=== PATIENT | male | born 1945 | race Caucasian/White ===

== ENCOUNTER 2016-10-27 10:00 | Inpatient (IN) | payer MEDICARE ==
[~2016-10-27] VITALS: Ht 172.7 cm; Wt 110.0 kg
--- NOTE | ~2016-10-27 | OR ---
[facility] 71 Y [address] ROOM: [place] [address] LOCATION: [facility] ADMIT DATE: 11/03/2016 OR/Procedure Report DISCHARGE DATE: FAMILY PHYSICIAN: Schuyler Belcher MD ATTENDING PHYSICIAN: DESTINY AGUILAR SURGEON: Destiny Aguilar MD INTERACTIVE PRODUCER: 1. Jack Rush PA-C. 2. Jamari Tim CST/CHEMA. DATE OF PROCEDURE: 11/03/2016 PRE-OP DIAGNOSIS: Primary osteoarthritis with severe external rotation contracture, right hip. POST-OP DIAGNOSIS: Primary osteoarthritis with severe external rotation contracture, right hip. OPERATION: Right total hip arthroplasty. ANESTHESIA: Spinal anesthesia plus subcutaneous and periarticular local anesthesia (ropivacaine with epinephrine and Toradol). ESTIMATED BLOOD LOSS: Approximately 250 mL. DRAIN: None. SPECIMEN: None. COMPLICATIONS: None. IMPLANTS: [place] Trident Tritanium size 60 mm hemispherical uncemented acetabular shell with one dome hole cover and no screws. [place] X3 neutral acetabular polyethylene liner with 40 mm inner diameter. DePuy [place] size 8 standard offset, uncemented femoral component. A 40 mm Biolox femoral head with +0 mm neck length. INDICATION FOR SURGERY: The patient is a 71-year-old male who presents with advanced right hip primary osteoarthritis with severe external rotation contracture and associated severely compromised activities of daily living. The patient has decided to proceed with hip replacement after having been thoroughly counseled regarding the associated risks, benefits, and limitations. We have specifically reviewed the risks and implications of infection, deep venous thrombosis, pulmonary embolism, mortality, neurovascular complications, blood transfusion (and associated potential for disease transmission or transfusion reaction), stiffness, instability, leg PATIENT'S NAME[facility] AGE: 71 Y [address] ROOM: [place] [address] LOCATION: [facility] ADMIT DATE: 11/03/2016 OR/Procedure Report DISCHARGE DATE: FAMILY PHYSICIAN: Schuyler Belcher MD ATTENDING PHYSICIAN: DESTINY AGUILAR length discrepancy, mechanical deterioration of the components (due to wear and to loosening), and the potential need for revision. DESCRIPTION OF PROCEDURE: The patient was positioned in a lateral decubitus position with the right side up after administration of anesthesia and prophylactic antibiotics. An axillary roll was placed and the non-operative leg was well padded. The pelvis was locked perpendicularly to the floor on a pegboard. The right hip and entire operative extremity were prepped and draped with vigilant sterile technique. The patient's name as well as the intended operative side and procedure were confirmed with a verbal time-out involving myself, the circulating nurse, the scrub nurse, and the anesthesiologist. The right hip was approached through a standard posterolateral incision. The fascia nj and the gluteus rome fascia were sharply divided in line with the overlying skin incision. The sciatic nerve was identified and was vigilantly protected throughout the entire case. The short external rotators and posterior capsule were divided from their respective femoral insertions and tagged with four #1 Ethibond sutures for later repair. The hip was posteriorly dislocated with combined flexion, adduction, and internal rotation. The femoral neck osteotomy was performed with an oscillating saw. Inspection of the femoral head demonstrated full-thickness loss of articular cartilage throughout its weightbearing surface. There was no femoral head collapse. There was markedly decreased femoral head-neck offset. There was a large osteophyte at the periphery of the femoral head. There were several small subchondral cysts of the femoral head. Photographic documentation of the appearance of the femoral head was obtained. Circumferential acetabular exposure was obtained. Examination of acetabulum demonstrated a large inferior osteophyte and a moderately large medial acetabular osteophyte. There were no loose bodies. There was a large effusion consisting of benign-appearing translucent synovial fluid. There was no dysplasia. There was full-thickness loss of articular cartilage throughout the acetabular dome. There were several small subchondral cysts anterosuperiorly. Remnants of the acetabular labrum were sharply thoroughly excised. The acetabulum was sequentially progressively reamed up to 59 mm with hemispherical power reamers. The final acetabular shell was impacted into position in 20 degrees of anteversion and 45 degrees of inclination. An excellent Press-fit was obtained. No supplemental dome screw fixation was necessary. A neutral trial liner was inserted. Attention was next focused upon femoral preparation. The femoral canal PATIENT'S NAME: HALINA HERMOSILLO [facility] AGE: 71 Y [address] ROOM: [id number] [place], [place] [address] LOCATION: [facility] ADMIT DATE: 11/03/2016 OR/Procedure Report DISCHARGE DATE: FAMILY PHYSICIAN: Schuyler Belcher MD ATTENDING PHYSICIAN: DESTINY AGUILAR initiator was utilized. The femoral canal was reamed by hand to a size 6 and subsequently on power to a size 8 with tapered conical reamers. The size 8 reamer tightly engaged the endosteal cortex of the proximal femur. The femoral canal was subsequently sequentially progressively broached up to a size 8. The size 8 broach obtained excellent axial and rotational stability. Trial reductions with the above specified construct yielded acceptable stability and acceptable reproduction of leg length and offset. All trial components were removed. The final acetabular liner was inserted with excellent circumferential visualization of its locking mechanism to assure adequate deployment. The final femoral component was impacted into position. The femoral component achieved excellent axial and rotational stability. The trunnion of the femoral component was vigilantly protected prior to placement of the femoral head. The trunnion of the femoral component was thoroughly cleaned and dried prior to placement of the femoral head. The incision was thoroughly irrigated with bacteriostatic pulsatile saline lavage multiple times throughout the case. The entire joint space was thoroughly inspected and thoroughly irrigated to assure that there was no residual debris of any sort. A final reduction was then performed. After final reduction, the hip could be firmly externally rotated in full extension and zero degrees of abduction without anterior subluxation. In neutral rotation and zero degrees of abduction, the hip could be firmly flexed to 120 degrees without instability. At 90 degrees of flexion and zero degrees abduction, the hip could be internally rotated to 65 degrees before there was any hint of posterior subluxation. The posterior capsule and short external rotators were repaired through two drill holes in the posterior aspect of the greater trochanter. The fascia nj and gluteus rome fascia were closed with multiple simple and [id number] interrupted # 1 Ethibond and #1 Vicryl sutures. Subcutaneous tissues were thoroughly re-irrigated with bacteriostatic pulsatile saline lavage. Subcutaneous tissues were re-approximated with simple buried interrupted #0 Vicryl sutures. The skin was closed with superficial buried interrupted 2-0 Vicryl sutures followed by a running subcuticular 3-0 Monocryl suture, followed by Octylseal, followed by Steri- Strips with benzoin, followed by an occlusive Mepilex dressing. There were no intra-operative complications. It should be noted that the physician's industrial hire sales assistant played an active, integral role throughout this entire operation. By providing expert retraction, she PATIENT'S NAME: HALINA HERMOSILLO [facility] AGE: 71 Y [address] ROOM: [place] [address] LOCATION: [facility] ADMIT DATE: 11/03/2016 OR/Procedure Report DISCHARGE DATE: FAMILY PHYSICIAN: Schuyler Belcher MD ATTENDING PHYSICIAN: DESTINY AGUILAR greatly facilitated and expedited safe and effective exposure of the proximal femur and acetabulum for preparation and implantation of the components. She was also actively involved in the patient's positioning, prepping and draping, as well as wound closure. MD VIPIN MCGOVERN/lizbet /[id number] d: 11/03/162009 t: 11/11/16 1042, OPERATIVE SUMMARY
--- NOTE | ~2016-10-27 | DS ---
PATIENT'S NAME: HALINA HERMOSILLO [facility] AGE: 71 Y [address] ROOM: [place] [address] LOCATION: [facility] ADMIT DATE: 11/03/2016 Discharge Summary DISCHARGE DATE: 11/05/2016 FAMILY PHYSICIAN: Schuyler Belcher MD ATTENDING PHYSICIAN: Marcelo Rodriguez PRIMARY DIAGNOSIS: Osteoarthritis, right hip. SECONDARY DIAGNOSIS: 1. Congestive heart failure. 2. Tobacco abuse. 3. Moderate chronic obstructive pulmonary disease. 4. Coronary artery disease. 5. Hyperlipidemia. 6. Obesity, BMI of 38. PROCEDURE PERFORMED: Right total hip arthroplasty. HISTORY: The patient is a 71-year-old male, who presents with advanced right hip degenerative joint disease and associated severely compromised activities of daily living. The patient has decided to proceed with total right hip arthroplasty after having been thoroughly counseled regarding the risks, benefits, limitations and alternatives. Please refer to the outpatient clinic notes and admission history and physical for this patient. HOSPITAL COURSE: The patient underwent a total right hip arthroplasty on 11/03/2016 without complications. Spinal anesthesia plus subcutaneous and periarticular local anesthesia was utilized. The patient received 24 hours of perioperative prophylactic antibiotics and remained hemodynamically stable, neurovascularly intact throughout the entire hospital course. The postoperative prophylactic deep venous thrombosis prophylaxis consisted Xarelto 10 mg, early mobilization and pneumatic compression devices. Daily physical therapy for gait training, transfer training, and reinforcement of hip dislocation precautions were received. The patient progressed well in physical therapy. On the date of discharge, 11/05/2016, the incision at the hip was healing well and showed no signs of infection. DISPOSITION: Home. DISCHARGE ACTIVITY: The patient is to bear weight as tolerated with strict hip dislocation precautions as instructed. There are to be no dressing changes. Dr. Rodriguez is to be notified immediately if there is any increased pain, fevers, chills, erythema or drainage. DISCHARGE MEDICATIONS: Include: PATIENT'S NAME: HLAINA HERMOSILLO [facility] AGE: 71 Y [address] ROOM: [place] [address] LOCATION: [facility] ADMIT DATE: 11/03/2016 Discharge Summary DISCHARGE DATE: 11/05/2016 FAMILY PHYSICIAN: Schuyler Belcher MD ATTENDING PHYSICIAN: Rodriguez,Earnest 1. Xarelto 10 mg, take one tablet p.o. daily for DVT prevention. 2. Diazepam 5 mg, take one-half to one tablet p.o. every 6 hours as needed for muscle spasms. 3. Dilaudid 2 mg, take 1 to 2 tablets p.o. every 4 hours as needed for pain. FOLLOWUP: Followup appointment is to be with Dr. Rodriguez on Thursday, November 10, 2016 for initial postop evaluation. SHANNAN QUAN FOR MD CHERIE MCGOVERN/kimberlyl /[id number] d: 11/12/16 1259 t: 11/17/16 1413, DISCHARGE SUMMARY
[2016-10-28] MEDS ORDERED: ASPIRIN EC81 MG PO (08:19)
[2016-10-28] MEDS ORDERED: LASIX40 MG PO ×2 (08:20→08:21)
[2016-10-28] MEDS ORDERED: PRINIVIL (ZESTR20 MG PO (08:21)
[2016-10-28] MEDS ORDERED: LOPRESSOR50 MG PO (08:21)
[2016-10-28] MEDS ORDERED: ZOCOR40 MG PO (08:22)
[2016-10-28] MEDS ORDERED: K-TAB 10MEQ10 MEQ PO (08:22)
[2016-10-28] MEDS ORDERED: ZAROXOLYN2.5 MG PO (08:22)
[2016-10-28] MEDS ORDERED: ALEVE220 M1 PO (08:23)
[2016-10-30] MEDS ORDERED: LASIX80 MG PO ×2 (15:01→15:05)
[2016-10-30] MEDS ORDERED: LASIX40 MG PO (15:09)
[2016-11-03 10:07] LABS: BILIRUBIN URINE NEGATIVE (NEGATIVE); BLOOD URINE NEGATIVE /UL (NEGATIVE); GLUCOSE URINE NEGATIVE (NEGATIVE); KETONE URINE NEGATIVE (NEGATIVE); LEUKOCYTES URINE 25 /UL (NEGATIVE); NITRITE URINE NEGATIVE (NEGATIVE); PROTEIN URINE NEGATIVE (NEGATIVE); SPEC GRAVITY URINE 1.015 (1.003-1.035); UROBILINOGEN URINE NORMAL (NORMAL)
[2016-11-03 10:10] LABS: COLOR URINE YELLOW (YELLOW); TURBIDITY URINE 1+ (CLEAR)
[2016-11-03 10:20] LABS: WBC URINE 0-2 #/HPF (NEGATIVE)
[2016-11-03 10:21] LABS: BACTERIA URINE NEGATIVE (NEGATIVE); EPITHELIAL URINE 0-2 #/HPF (NEGATIVE); RBC URINE RARE #/HPF (NEGATIVE)
[2016-11-04 05:51] LABS: HEMATOCRIT 34.6 % (37.0-53.0); HEMOGLOBIN 11.7 g/dL (11.0-16.0)
[2016-11-05] MEDS ORDERED: TYLENOL EXTRA500 MG PO (09:45)
[2016-11-05] MEDS ORDERED: COLACE100 MG PO (09:46)
[2016-11-05] MEDS ORDERED: MIRALAX17 GM PO (09:47)
[2016-11-05] MEDS ORDERED: XARELTO10 MG PO (09:48)
[2016-11-05] MEDS ORDERED: VALIUM5 MG PO (09:49)
[2016-11-05] MEDS ORDERED: DILAUDID 2MG(HYD2 MG PO (09:53)
== END 2016-11-05 18:00 | disposition disaster alternative care site (69) | DRG 470 ==
LOC: G3N 11-03 08:36
PROVIDERS: ADMIT Orthopaedic Surgery
PROC: 0SR904A Replacement of Right Hip Joint with Ceramic on Polyethylene Synthetic Substitute, Uncemented, Open Approach (ICD-10-PCS; principal; 2016-11-03)
DX: M16.11 Unilateral primary osteoarthritis, right hip (principal); I50.20 Unspecified systolic (congestive) heart failure; J44.9 Chronic obstructive pulmonary disease, unspecified; F17.220 Nicotine dependence, chewing tobacco, uncomplicated; I25.10 Atherosclerotic heart disease of native coronary artery without angina pectoris; I10 Essential (primary) hypertension; E78.5 Hyperlipidemia, unspecified; E66.9 Obesity, unspecified; Z68.36 Body mass index [BMI] 36.0-36.9, adult; Z79.82 Long term (current) use of aspirin; Z23 Encounter for immunization; M24.551 Contracture, right hip
CPT/HCPCS: C1776; G0008; G0009; J0690; J1100; J1885; J2001; J2250; J2405; J2795; J7030; J7120

== ENCOUNTER 2017-02-23 10:00 | Inpatient (IN) | payer MEDICARE ==
[~2017-02-23] VITALS: Ht 172.7 cm; Wt 117.9 kg
--- NOTE | ~2017-02-23 | DS ---
PATIENT'S NAME: HALINA HERMOSILLO [facility] AGE: 71 Y [address] ROOM: [place] [address] LOCATION: [facility] ADMIT DATE: 03/02/2017 Discharge Summary DISCHARGE DATE: 03/04/2017 FAMILY PHYSICIAN: Schuyler Belcher MD ATTENDING PHYSICIAN: Marcelo Aguilar PRIMARY DIAGNOSIS: Osteoarthritis, left hip. SECONDARY DIAGNOSES: 1. Coronary artery disease. 2. Congestive heart failure. 3. Hypertension. 4. Chronic obstructive pulmonary disease. 5. Tobacco abuse. 6. Dyslipidemia. PROCEDURE PERFORMED: Left total hip arthroplasty. HISTORY: The patient is a 71-year-old male who presents with advanced left hip degenerative joint disease and associated severely compromised activities of daily living. The patient has decided to proceed with total left hip arthroplasty after having been thoroughly counseled regarding the risks, benefits, limitations and alternatives. Please refer to the outpatient clinic notes and admission history and physical for this patient. HOSPITAL COURSE: The patient underwent a total left hip arthroplasty on March 02, 2017 without complications. Spinal anesthesia plus subcutaneous and periarticular local anesthesia (ropivacaine with epinephrine) was utilized. The patient received 24 hours of perioperative prophylactic antibiotics and remained hemodynamically stable, neurovascularly intact throughout the entire hospital course. The postoperative prophylactic deep venous thrombosis prophylaxis consisted of Xarelto, early mobilization and pneumatic compression devices. Daily physical therapy for gait training, transfer training, and reinforcement of hip dislocation precautions were received. The patient progressed well in physical therapy. On the date of discharge, 03/04/2017, the incision at the hip was healing well and showed no signs of infection. DISPOSITION: Home. DISCHARGE ACTIVITY: The patient is to bear weight as tolerated with strict hip dislocation precautions as instructed. There are to be no dressing changes. Dr. Aguilar is to be notified immediately if there is any increased pain, fevers, chills, erythema or drainage. DISCHARGE MEDICATIONS: New medications: PATIENT'S NAME: HALINA HERMOSILLO [facility] AGE: 71 Y [address] ROOM: [place] [address] LOCATION: [facility] ADMIT DATE: 03/02/2017 Discharge Summary DISCHARGE DATE: 03/04/2017 FAMILY PHYSICIAN: Schuyler Belcher MD ATTENDING PHYSICIAN: Marcelo Aguilar 1. Acetaminophen 1000 mg orally q.6 hours as needed for pain. 2. Colace 100 mg p.o. b.i.d. as needed for constipation. 3. MiraLAX powder 17 g orally twice a day as needed for constipation. 4. Xarelto 10 mg orally daily. 5. Diazepam 5 mg, half to one tab every 6 hours as needed for muscle spasms. 6. Dilaudid 2 mg 1 to 2 tabs every 4 hours as needed for pain. 7. Artificial tears one drop ophthalmically every hour as needed for dry eyes. Otherwise, the patient was instructed to continue the pre-admission medications as instructed by the internal medicine doctor. FOLLOWUP: Followup appointment is to be with Dr. Aguilar's office on March 09, 2017 at 1:00 p.m. for his initial postoperative evaluation. CANDIDA AGUILAR PA-C FOR MD MYNOR MCGOVERN/lizbet /[id number] d: 03/08/17 215 t: 03/09/17 1740, DISCHARGE SUMMARY
--- NOTE | ~2017-02-23 | OR ---
PATIENT'S NAME: DENILSON HERMOSILLO [facility] AGE: 71 Y [address] ROOM: [place] [address] LOCATION: [facility] ADMIT DATE: 03/02/2017 OR/Procedure Report DISCHARGE DATE: FAMILY PHYSICIAN: Schuyler Belcher MD ATTENDING PHYSICIAN: DESTINY AGUILAR SURGEON: Destiny Aguilar MD ADMISSIONS SUPERVISOR: 1. Maicol uRsh PA-C. 2. Jamari Tim CST/CHEMA. DATE OF PROCEDURE: 03/02/2017 PRE-OP DIAGNOSIS: Primary osteoarthritis, left hip. POST-OP DIAGNOSIS: Primary osteoarthritis, left hip. OPERATION: Left total hip arthroplasty. ANESTHESIA: Spinal anesthesia plus subcutaneous and periarticular local anesthesia (ropivacaine with epinephrine). ESTIMATED BLOOD LOSS: Approximately 250 mL. DRAIN: None. SPECIMEN: None. COMPLICATIONS: None. IMPLANTS: 1. [place] Trident titanium size 58 mm hemispherical uncemented acetabular shell with 1 dome hole cover and no screws. 2. [place] X3 neutral acetabular polyethylene liner with 40 mm inner diameter. 3. DePuy [place] size 8 standard-offset uncemented femoral component. 4. A 40 mm metallic femoral head with +5 mm neck length. INDICATION FOR SURGERY: Denilson Hermosillo is a 71-year-old male who presents with advanced primary osteoarthritis of the left hip and associated severely compromised activities of daily living. The patient has decided to proceed with hip replacement after having been thoroughly counseled regarding the associated risks, benefits, and limitations. We have specifically reviewed the risks and implications of infection, deep venous thrombosis, pulmonary embolism, mortality, neurovascular complications, blood transfusion (and associated potential for disease transmission or transfusion reaction), stiffness, instability, leg length discrepancy, mechanical deterioration of the components (due to wear and to loosening), and the potential need for PATIENT'S NAME: DENILSON HERMOSILLO [facility] AGE: 71 Y [address] ROOM: [place] [address] LOCATION: [facility] ADMIT DATE: 03/02/2017 OR/Procedure Report DISCHARGE DATE: FAMILY PHYSICIAN: Schuyler Belcher MD ATTENDING PHYSICIAN: DESTINY AGUILAR. DESCRIPTION OF PROCEDURE: The patient was positioned in a lateral decubitus position with the left side up after administration of anesthesia and prophylactic antibiotics. An axillary roll was placed and the non-operative leg was well padded. The pelvis was locked perpendicularly to the floor on a pegboard. The left hip and entire operative extremity were prepped and draped with vigilant sterile technique. The patient's name as well as the intended operative side and procedure were confirmed with a verbal time-out involving myself, the circulating nurse, the scrub nurse, and the anesthesiologist. The left hip was approached through a standard posterolateral incision. The fascia nj and the gluteus rome fascia were sharply divided in line with the overlying skin incision. The sciatic nerve was identified and was vigilantly protected throughout the entire case. The short external rotators and posterior capsule were divided from their respective femoral insertions and tagged with four #1 Ethibond sutures for later repair. The hip was posteriorly dislocated with combined flexion, adduction, and internal rotation. The femoral neck osteotomy was performed with an oscillating saw. Inspection of the femoral head demonstrated full-thickness loss of articular cartilage throughout the anterosuperior quadrant of the femoral head. There was a large osteophyte at the periphery of the femoral head. There was no femoral head collapse. Circumferential acetabular exposure was obtained. Examination of acetabulum demonstrated a moderate effusion consisting of benign-appearing translucent synovial fluid. There were no loose bodies. There was a moderate-sized medial acetabular osteophyte. There were no loose bodies. There was no dysplasia. There was full-thickness loss of articular cartilage throughout the majority of the acetabular dome. Remnants of the acetabular labrum were sharply thoroughly excised. The acetabulum was sequentially progressively reamed up to 57 mm with hemispherical power reamers. The final acetabular shell was impacted into position in 20 degrees of anteversion and 45 degrees of inclination. An excellent press-fit was obtained. No supplemental dome screw fixation was necessary. A neutral trial liner was inserted. Attention was next focused upon femoral preparation. The femoral canal initiator was utilized. The femoral canal was reamed by hand to a size 6 and subsequently on power to a size 8. The size 8 reamer tightly engaged the endosteal cortex of the proximal femur. The femoral canal was subsequently sequentially progressively broached up to a size 8. The size 8 broach PATIENT'S NAME: DENILSON HERMOSILLO [facility] AGE: 71 Y [address] ROOM: [address] [place] [id number] LOCATION: [facility] ADMIT DATE: 03/02/2017 OR/Procedure Report DISCHARGE DATE: FAMILY PHYSICIAN: Schuyler Belcher MD ATTENDING PHYSICIAN: DESTINY AGUILAR obtained excellent axial and rotational stability. Trial reductions with the above specified construct yielded acceptable stability and acceptable reproduction of leg length and offset. All trial components were removed. The final acetabular liner was inserted with excellent circumferential visualization of its locking mechanism to assure adequate deployment. The final femoral component was impacted into position. The femoral component achieved excellent axial and rotational stability. The trunnion of the femoral component was vigilantly protected prior to placement of the femoral head. The trunnion of the femoral component was thoroughly cleaned and dried prior to placement of the femoral head. The incision was thoroughly irrigated with bacteriostatic pulsatile saline lavage multiple times throughout the case. The entire joint space was thoroughly inspected and thoroughly irrigated to assure that there was no residual debris of any sort. A final reduction was then performed. After final reduction, the hip could be firmly externally rotated in full extension and zero degrees of abduction without anterior subluxation. In neutral rotation and zero degrees of abduction, the hip could be firmly flexed to 120 degrees without instability. At 90 degrees of flexion and zero degrees abduction, the hip could be internally rotated to 60 degrees before there was any hint of posterior subluxation. The posterior capsule and short external rotators were repaired through two drill holes in the posterior aspect of the greater trochanter. The fascia nj and gluteus rome fascia were closed with multiple simple and [id number] interrupted # 1 Ethibond and #1 Vicryl sutures. Subcutaneous tissues were thoroughly re-irrigated with bacteriostatic pulsatile saline lavage. Subcutaneous tissues were re-approximated with simple buried interrupted #0 Vicryl sutures. The skin was closed with superficial buried interrupted 2-0 Vicryl sutures followed by a running subcuticular 3-0 Monocryl suture, followed by Octylseal, followed by Steri- Strips with benzoin, followed by an occlusive Mepilex dressing. There were no intra-operative complications. It should be noted that the physician's evaluation assistant played an active, integral role throughout this entire operation. By providing expert retraction, they greatly facilitated and expedited safe and effective exposure of the proximal femur and acetabulum for preparation and implantation of the components. They were also actively involved in the patient's positioning, prepping and draping, as well as wound closure. PATIENT'S NAME: DENILSON HERMOSILLO [facility] AGE: 71 Y [address] ROOM: [address] [address] LOCATION: [facility] ADMIT DATE: 03/02/2017 OR/Procedure Report DISCHARGE DATE: FAMILY PHYSICIAN: Schuyler Belcher MD ATTENDING PHYSICIAN: DESTINY AGUILAR MD SYLVIA MCGOVERNW/modl /[id number] d: 03/02/171921 t: 03/03/17 1033, OPERATIVE SUMMARY
[~2017-02-23 10:00] MED LIST: ALEVE220 M1 PO; ASPIRIN EC81 MG PO; COLACE100 MG PO; DILAUDID 2MG(HYD2 MG PO; K-TAB 10MEQ10 MEQ PO; LASIX40 MG PO; LASIX80 MG PO; LOPRESSOR50 MG PO; MIRALAX17 GM PO; PRINIVIL (ZESTR20 MG PO; TYLENOL EXTRA500 MG PO; VALIUM5 MG PO; XARELTO10 MG PO; ZAROXOLYN2.5 MG PO; ZOCOR40 MG PO
--- NOTE | 2017-03-02 14:20 | NUR ---
Introduced self/role to patient Reports he live in [facility] [place]. Has DME from prior surgery including walker, tall toilet, sock aide, newsperson. Plans to return home with help from sister. No anticipated needs at this time. Will follow.
--- NOTE | 2017-03-02 18:31 | NUR ---
Significant Event: Pt arrived from PACU, VSS, 1900 is his 3rd hourly, Pt has adequate I&O, drank over 1600, inc and st cathed at 1710 for 1450 mls., Pain is minimal, Last Dilaudid & Tylenol at 1641, Spinal was slow to wear off, Performed Pericare & got to recliner around 1715, Follow up: Pain, Next Antb at 1800
--- NOTE | 2017-03-03 04:00 | NUR ---
Patient alert and oriented x3, very pleasant and cooperative, dressing clean dry and intact, ice in place to hip, unsteady with ambulation needs 2 assist with walker and gaitbelt, csm with in normal limits, pain undercontrol with oral dilaudid, has rested some tonight
--- NOTE | 2017-03-03 17:17 | NUR ---
Significant Event: Pt is a/o. Cooperative with cares. Has been up in chair and amb to BR with walker, gaitbelt and 1 assist. Slightly unsteady when up. L) eye sore, has eye drops q hour. Dilaudid last @ 1605. Toradol IV @ 1031. CSM WNL. Ice bag to L) hip. mepilex and tegaderm c/d/i. Pillow between knees. Follow up:
--- NOTE | 2017-03-04 04:20 | NUR ---
Significant Event: A/O X 3. IV SALINE LOCKS INTACT. SAT UP IN RECLINER CHAIR. RETURN TO BED 2345 WITH ONE ASSIST WALKER AND GAITBELT, STIFFNESS. BED EXIT ALARMS ON. BEEN REPOSITIONED TO RT SIDE. COCCYX -JOSE AREA REDDENED. ALOE APPLIED. DRSGS LEFT HIP DRY INTACT. ICE BAG TO SITE. GAIT SLIGHT UNSTEADY WHEN UP. PILLOWS BETWEEN KNEES. LEFT EYE SORENESS BUT IS IMPROVING WITH EYE DROPS. ON ROUTINE SHCEDULED TYLENOL X ST 1000MG 2300/0500. HAD DILAUDID 2MG PO AT 2248 FOR PAIN RATE 2 LEFT HIP. LATER 1 RATING. HAD LARGE BM IN BR AND VOID 275ML AT 2139. Follow up:
[2017-03-04] MEDS ORDERED: TYLENOL EXTRA500 MG PO (14:31)
[2017-03-04] MEDS ORDERED: COLACE100 MG PO (14:33)
[2017-03-04] MEDS ORDERED: MIRALAX17 GM PO (14:34)
[2017-03-04] MEDS ORDERED: XARELTO10 MG PO (14:35)
[2017-03-04] MEDS ORDERED: VALIUM5 MG PO (14:36)
[2017-03-04] MEDS ORDERED: DILAUDID 2MG(HYD2 MG PO (14:37)
[2017-03-04] MEDS ORDERED: ARTIFICIAL TEAR15 M5 OPHTH (14:39)
--- NOTE | 2017-03-04 15:30 | NUR ---
Patient was AOx3. VSS. CSM WNL. Patient had no questions or concerns about discharge instructions. Patient was wheeled out to front lobby for dismissal home with sister.
== END 2017-03-04 15:15 | disposition disaster alternative care site (69) | DRG 470 ==
LOC: G3N 03-02 07:02
PROVIDERS: ADMIT Orthopaedic Surgery
PROC: 0SRB02A Replacement of Left Hip Joint with Metal on Polyethylene Synthetic Substitute, Uncemented, Open Approach (ICD-10-PCS; principal; 2017-03-02)
DX: M16.12 Unilateral primary osteoarthritis, left hip (principal); J96.10 Chronic respiratory failure, unspecified whether with hypoxia or hypercapnia; I50.32 Chronic diastolic (congestive) heart failure; I11.0 Hypertensive heart disease with heart failure; J44.9 Chronic obstructive pulmonary disease, unspecified; E78.5 Hyperlipidemia, unspecified; I25.10 Atherosclerotic heart disease of native coronary artery without angina pectoris; Z72.0 Tobacco use; E66.9 Obesity, unspecified; Z68.39 Body mass index [BMI] 39.0-39.9, adult
CPT/HCPCS: C1776; J0690; J1100; J1885; J2001; J2250; J2405; J2795; J7030